=== PATIENT | male | born 1970 | race Caucasian/White ===

== ENCOUNTER → 2017-03-14 | Outpatient (CLI) | payer BC ==
[~2017-03-14] MED LIST: BUPRTAB51 PO; DABI150C PO; LAMO50TA PO; META1TAB22 PO; METO50TA7 PO; OMEP40CA PO; TAMS0.4C38 PO; [UNRECOGNIZED DRUG - CODE] PO
--- NOTE | 2017-03-15 06:38 | PAP/PSG TECHNICIAN REPORT ---
[facility] Contract Law Specialist Polysomnogram Report Study name: None Report date: 03/15/2017 Study date: 03/14/2017 Referring Physician: Avelina Mccord PA-C, PA-C Name: AKASH FITCH Interpreting Physician: Chidi Salazar M.D. Date of : 1970 Contract Law Specialist: Adam Mueller RPSCHICHO. Sex: Male Age: 47 StudyType: PSG Weight: 343 lbs 18 inches Height: 47 years, Height 6' 3" Neck Circum: BMI: 42.87 Medications: METOPROLOL TARTRATE 25 MG, PRADAXA 150 MG, DITIAZEM HCL 90 MG, BUPROPION HCL 75 MG, FLOMAX 0.4 MG, FLONASE 50 MCG/ACT, SKELAXIN 800 MG, PROVENTIL HFA 108 90 BASE Patient History PATIENT HAS HISTORY OF ATRIL FIBRILLATION, GERD, EL AND MORBID OBESITY. HE HAD BARIATRIC SURGERY A YEAR AGO AND HAS LOST OVER 200LBS. HE CURRENTLY WEARS CPAP BUT HAS BEEN HAVING TROUBLE WEARING AND THINKS THE PRESSURE IS TOO HIGH. HE IS HERE TODAY TO CONFIRM IF HE STILL HAS SLEEP APNEA. ESS = 2 RM 7 Parameters Monitored NPSG: E1-M2, E2-M1, Fp1-M2, Fp2-M1, F3-M2, F4-M2, F4-M1, C3-M2, C4-M2, C4-M1, O1-M2, O2-M2, O2-M1, T3-M2, T4-M1, P3-M2, P4-M1, CHIN1, CHIN2, HR, EKG, Legs, PFLOW, SNOR, FLOW, CFLOW, Tidal Volume, THOR, ABDO, SpO2, PLTH, CPRESS, ETCO2 Wave, ETCO2, pH Sleep Architecture Sleep Stages Time at Lights Off 10:42:49 PM STAGES Time (min.) TST (%) Time at Lights On 5:49:49 AM Wake 56.5 -- Total Recording Time (TRT) 427.50 min. N1 26.0 7 Total Sleep Period (TSP) 391.0 min. N2 212.5 57 Total Sleep Time (TST) 370.5min. N3 69.5 19 Awake Time 56.5 min. REM 62.5 17 Wake after Sleep Onset 20.5 min. Sleep Efficiency (SE) 87 % Sleep Onset Latency (DOT) 36.0 min. Number of Stage 1 Shifts None Awakenings 15 Stage Changes 61 Number of REM periods 3 REM 62.5 17 REM Latency 112.0 min. NREM 308.0 83 Body Position Analysis Supine Right Left Side Prone Vertical Total Sleep Time (min.) 199.6 88.7 125.8 214.46 0.0 0.0 Total Sleep Time (%) 42% 24% 34% 58 0% N/A% Total Sleep Time REM (min.) 9.0 20.5 33.0 None 0.0 0.0 Total Sleep Time NREM (min.) 147.0 68.2 92.8 None 0.0 0.0 Intermittent Wake (min.) 43.6 4.0 8.9 None 0.0 0.0 Total Sleep Period (%) 43% None None None None None Arousals Myoclonus (PLM) * Events Count Index Events Count Index Spontaneous 17 3 Events Awake (PLMW) 38 40.4 Respiratory 3 0.5 Events Asleep w/ Arousal (PLMA) 4 0.6 PLM 4 1 Events Asleep w/o Arousal (PLMS) 50 8.1 Snoring 1 0 Total Asleep 54 8.7 Total 25 4 Total 92 13 Respiratory Analysis * CA OA MA CH H RERA Total Count 0 0 0 0 8 1 8 Index 0.0 0.0 0.0 0 1.3 0 1.5 Mean Duration 0.0 0.0 0.0 0.00 22.7 16.3 22.0 Longest Duration 0.0 0.0 0.0 0.00 0.0 16.3 51.9 Respiratory Event Summary Total Supine ~Supine Right Left Prone REM NREM Apneas Count 0 0 0 0 0 N/A 0 0 Index 0.0 0 0 0.0 0.0 N/A 0 0 Hypopneas (4% Desat) Count 8 8 0 0 0 N/A 1 7 Index 1.3 3.1 0 0.0 0.0 N/A 1.0 1.4 Apneas & All Hypopneas Count 8 8 0 0 0 N/A 1 7 Index 1.3 3 0 0 0 N/A 1.0 1.4 Respiratory Events (Wellness Trainer+All Hyp+RERA) Count 8 9 0 0 0 N/A 1 7 Index 1.5 3 0 0.0 0.0 N/A 1.0 1.6 Respiratory Related Arousal Count 3 9 0 0 0 N/A 0 3 Index 0.5 1 0 0 0 N/A 0 1 Snoring Analysis Supine Right Left Prone REM NREM Total Snore duration 0.2 min Snores count 2 2 0 N/A 0 4 4 Snore mean duration 3.1 Sec Snores index 1 1 0 N/A 0.0 0.8 0.6 TST with snoring (%) 0.1% Desaturation Event Summary: Minimum %SpO2 Event Count Mean/Min/Max Duration(sec.) Desaturation Index % Time In Bed > 90 8 42.0 / 36.3 / 48.5 1.1 98.4 86 - 90 0 N/A 0.0 1.6 81 - 85 0 N/A 0.0 0.0 76 - 80 0 N/A 0.0 0.0 71 - 75 0 N/A 0.0 0.0 66 - 70 0 N/A 0.0 0.0 61 - 65 0 N/A 0.0 0.0 56 - 60 0 N/A 0.0 0.0 51 - 55 0 N/A 0.0 0.0 < 50 0 N/A 0.0 0.0 Total REM NREM Awake <50% 0.0 min. 0.0 min. 0.0 min. 0.0 min. 51 - 60% 0.0 min. 0.0 min. 0.0 min. 0.0 min. 61 - 70% 0.0 min. 0.0 min. 0.0 min. 0.0 min. 71 - 80% 0.0 min. 0.0 min. 0.0 min. 0.0 min. 81 - 90% 6.9 min. 0.8 min. 6.2 min. 0.0 min. 91 - 100% 419.0 min. 61.7 min. 301.8 min. 55.5 min. Average 93 94 93 95 Minimum SpO2 89 89 89 91 Desaturation Event Index 1.1 1.0 1.4 0.0 # Desat. Events below 89% N/A N/A N/A N/A Time(%) with Saturation below 89% 0.0 0.0 0.0 0.0 Time(min.) with Saturation below 89% 0.0 0.0 0.0 0.0 Time (mins) REM (mins) NREM (mins) % of TST SpO2 Below 90% 2 1 N1 0.1 SpO2 Below 88% 0 0 0 0 Heart Rate Analysis Min (bpm) Max (bpm) Average (bpm) Awake 62 110 86 NREM 58 102 79 REM 60 98 79 Overall 58 102 79 Supplemental O2 Values Minimum O2 level: None Value Start Time End Time Contract Law Specialist Comments Mr. Fitch slept in the right, left and supine positions. Irregular EKG noted. Leg movements noted. No bruxism noted. Snoring was noted and scored as a 2 on a scale of 1 through 5. (0=no snoring, 5=snoring loud enough to be heard through a closed door or down the turner way) Mr. Fitch awoke to use the restroom 0 times during the night. Mr. Fitch stated I did not sleep as well as I do when I am in my own bed. The final report will be interpreted and signed by a sleep physician. The completed physician report will then be placed in the patient medical record. Therapy (cm H2O) 0 TIB (min.) 427.0 TST (min.) 370.5 Sleep Onset (min.) 36.0 REM Onset From Sleep (min.) 112.0 Sleep Efficiency % 87 Wakefulness (%) 13 Wakefulness (min.) 56.5 NREM 1 (%) 7 NREM 1 (min.) 26.0 NREM 2 (%) 57 NREM 2 (min.) 212.5 NREM 3 (%) 19 NREM 3 (min.) 69.5 REM (%) 17 REM (min.) 62.5 # Arousals 25 Arousal Index 4 # Snore 4 Snore Index 0.6 AHI 1.3 AHI Supine 3 AHI Non-Supine 0 NREM AHI 1.4 REM AHI 1.0 RDI 1.5 # Obstructive Apnea 0 # Central Apnea 0 # Mixed Apnea 0 # Hypopneas 8 RERAs 1 Total Respiratory Events 9 Time Below SpO2 89% (min.) 0.0 Mean NREM SpO2 (%) 93 Mean REM SpO2 (%) 94 Mean Sleep SpO2 (%) 93 Min NREM SpO2 (%) 89 Min REM SpO2 (%) 89 Position Supine (min.) 199.6 Position Non-supine (min.) 214.5 LM Index Sleep 8.7 LM Index NREM 7.8 LM Index REM 13.4 Mean Heart Rate (bpm) 79 Min Heart Rate (bpm) 58
== END ==
LOC: C.NEUR 21:00
PROVIDERS: ATTEND Physician Assistant
DX: G47.30 Sleep apnea, unspecified (principal); J45.909 Unspecified asthma, uncomplicated; K21.9 Gastro-esophageal reflux disease without esophagitis; I48.91 Unspecified atrial fibrillation; E66.9 Obesity, unspecified; E66.01 Morbid (severe) obesity due to excess calories; J30.9 Allergic rhinitis, unspecified; N40.0 Benign prostatic hyperplasia without lower urinary tract symptoms; F32.9 Major depressive disorder, single episode, unspecified; I10 Essential (primary) hypertension; Z86.73 Personal history of transient ischemic attack (TIA), and cerebral infarction without residual deficits; Z98.84 Bariatric surgery status